=== PATIENT | female | born 1995 | race Caucasian/White ===

== ENCOUNTER 2019-01-26 12:33 | Emergency (ER) | payer MEDICAID, OTHER ==
--- NOTE | 2019-01-26 13:11 | EDM.PDOCBH ---
ED HPI GENERAL MEDICAL PROBLEM - General Chief Complaint: Behavioral/Psych Stated Complaint: FAINTED AT [employer] Time Seen by Provider: 01/26/19 13:07 Source of Information: Reports: Patient History Limitations: Reports: No Limitations - History of Present Illness INITIAL COMMENTS - FREE TEXT/NARRATIVE: 23-year-old female presents to the ED in a couple of her mother and sister. The details of what happened this morning are very unclear. She reports that she was out drinking yesterday but got home about 1700 hrs. and stays with her grandmother. Eat supper last night and she states she was not drunk by any means. She went to bed about 10:00. She get up for work this morning around 0730 hrs. ago already for work which was at 0900 hrs. When her mother was speaking with her this morning she was crying uncontrollably and the patient doesn't recollect this. Similarly at work she was crying when speaking to the luncheonette manager and apparently fainted in the workplace. 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 Therefore she was unlikely to been left alone. Been eating and drinking all that well for the last 2-3 days. She is under great deal of stress in college at this time. She states she thinks she's been sleeping adequately. No previous similar symptoms of happened like this in the past. Think that she got any other drugs in the alcohol she was drinking yesterday. She did have emesis once at work when her mother was there. She states was mostly clear water. She is usually very healthy young lady. She does not take any medications. Onset: Today Onset Date: 01/26/19 (Essentially suffered a breakdown in the workplace this morning. Questionable whether she fainted. She was crying uncontrollably. Both her grandmother and her mother attended her at work and brought her to the hospital.) Duration: Hour(s):, Other (Now feels better.) Location: Reports: Other (Denies any pain. Confused about the events of today.) Quality: Denies: Same as Previous Episode Severity: Moderate Improves with: Reports: Other (Seems to be back to normal at this time although she still quite anxious.) Context: Reports: Other. Denies: Activity, Exercise, Lifting, Sick Contact, Trauma Associated Symptoms: Reports: Confusion, Loss of Appetite, Malaise. Denies: Chest Pain (Remember going to work this morning who she was working with etc.), Cough, cough w sputum, Diaphoresis, Fever/Chills, Headaches, Nausea/Vomiting, Rash, Seizure, Shortness of Breath, Syncope Treatments LEGAL RECEPTIONIST: Reports: Other (see below) (None.) - Related Data Allergies Allergy/AdvReac Type Severity Reaction Status Date / Time No Known Allergies Allergy Verified 01/26/19 12:41 Home Meds: Home Meds . 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 Denies : Fever, Chills, Weight Loss HEENT: Reports: No Symptoms Respiratory: Reports: No Symptoms Cardiovascular: Reports: No Symptoms Endocrine: Reports: Fatigue GI/Abdominal: Reports: Nausea, Vomiting (Vomited once at work this morning clear emesis.) : Reports: No Symptoms Musculoskeletal: Reports: No Symptoms Skin: Reports: No Symptoms Neurological: Reports: Confusion, Dizziness Psychiatric: Reports: Agitation, Anxiety, Confusion (Confusion about what transpired this morning she can't remember.), Mood Lability, Other. Denies: Homicidal Ideation, Suicidal Ideation Hematologic/Lymphatic: Reports: No Symptoms Immunologic: Reports: No Symptoms ED EXAM, BEHAVIORAL HEALTH - Physical Exam Exam: See Below Exam Limited By: No Limitations General Appearance: Alert, WD/WN, Anxious, Moderate Distress, Other (Answers all questions to the best of ability but she is confused but the details what is happening to her this morning. I could not get any firm history that she may have suffered a seizure without anybody knowing this and becoming postictal.) Eye Exam: Bilateral Eye: Normal Inspection, PERRL Throat/Mouth: Normal Inspection, Normal Lips, Normal Oropharynx, Other Head: Atraumatic, Normocephalic (No evidence of dental or tongue injuries.) Neck: Normal Inspection, Supple, Non-Tender, Full Range of Motion. No: Lymphadenopathy (L), Lymphadenopathy (R) Respiratory/Chest: No Respiratory Distress, Lungs Clear, Normal Breath Sounds, No Accessory Muscle Use, Chest Non-Tender Cardiovascular: Normal Peripheral Pulses, Regular Rate, Rhythm, No Edema, No Gallop, No Murmur, No Rub GI/Abdominal: Normal Bowel Sounds, Soft, Non-Tender, No Organomegaly, No Abnormal Bruit, No Mass, Pelvis Stable, Other (No surgical scars.) Back Exam: Normal Inspection, Full Range of Motion, Paraspinal Tenderness. No: CVA Tenderness (L), CVA Tenderness (R) Extremities: Normal Inspection, Normal Range of Motion, Non-Tender, No Pedal Edema, Other Neurological: Alert (No tremor), CN II-XII Intact, Normal Cognition, Normal Reflexes, No Motor/Sensory Deficits, Oriented x 3. No: Normal Mood/Affect Psychiatric: Tearful, Other (Very anxious.). No: Suicidal Thoughts, Tangential Thoughts, Visual Hallucinations, Grandiose Thoughts, Paranoid Thoughts, Threatening Behavior Skin Exam: Warm, Dry, Cool (Cool and clammy and quite pallid on initial assessment.) COURSE, BEHAVIORAL HEALTH COMP - Course Vital Signs: Last Vital Signs Temp 35.8 C 01/26/19 12:40 Pulse 71 01/26/19 12:40 Resp 14 01/26/19 12:40 BP 125/80 01/26/19 12:40 Pulse Ox 100 01/26/19 12:40 Orthostatic Blood Pressure [ 110/82 Standing] Orthostatic Blood Pressure [ 115/82 Sitting] Orthostatic Blood Pressure [ 103/69 Supine] Orders, Labs, Meds: Active Orders 24 hr Category Date Time Status Orthostatic Vital Signs [RC] ASDIRECTED Care 01/26/19 13:07 Active COMPREHENSIVE METABOLIC PN,CMP [CHEM] Stat Lab 01/26/19 14:35 Ordered DRUG SCREEN, URINE [URCHEM] Stat Lab 01/26/19 13:57 Ordered URINALYSIS W/MICROSCOPIC [UA W/MICROSCOPIC] [URIN] Stat Lab 01/26/19 13:57 Ordered Dextrose 5%-Lactated Ringers 1,000 ml Med 01/26/19 13:15 Active IV ASDIRECTED Medication Orders Dextrose/Lactated Ringer's (Dextrose 5%-Lactated Ringers) 1,000 mls @ 999 mls/ hr IV ASDIRECTED MY Last Admin: 01/26/19 13:16 Dose: 999 mls/hr Laboratory Tests 01/26/19 01/26/19 01/26/19 Range/Units 12:40 12:40 12:40 WBC 8.04 (3.98-10.04) K/mm3 RBC 4.93 (3.98-5.22) M/mm3 Hgb 12.8 (11.2-15.7) gm/dl Hct 38.0 (34.1-44.9) % MCV 77.1 L (79.4-94.8) fl MCH 26.0 (25.6-32.2) pg MCHC 33.7 (32.2-35.5) g/dl RDW Std Deviation 44.0 (36.4-46.3) fL Plt Count 250 (182-369) K/mm3 MPV 12.0 (9.4-12.3) fl Neut % (Auto) 85.8 H (34.0-71.1) % Lymph % (Auto) 10.8 L (19.3-51.7) % [place] % (Auto) 2.9 L (4.7-12.5) % Eos % (Auto) 0.4 L (0.7-5.8) Baso % (Auto) 0.1 (0.1-1.2) % Neut # (Auto) 6.90 H (1.56-6.13) K/mm3 Lymph # (Auto) 0.87 L (1.18-3.74) K/mm3 [place] # (Auto) 0.23 L (0.24-0.36) K/mm3 Eos # (Auto) 0.03 L (0.04-0.36) K/mm3 Baso # (Auto) 0.01 (0.01-0.08) K/mm3 Manual Slide Review Abnormal smear Lactic Acid (0.4-2.0) mmol/L Magnesium 1.9 (1.8-2.4) mg/dl C-Reactive Protein < 0.2 (<1.0) mg/dL HCG, Qual Negative (NEGATIVE) Ethyl Alcohol 0.20 (0.00) gm% 01/26/19 Range/Units 13:29 WBC (3.98-10.04) K/mm3 RBC (3.98-5.22) M/mm3 Hgb (11.2-15.7) gm/dl Hct (34.1-44.9) % MCV (79.4-94.8) fl MCH (25.6-32.2) pg MCHC (32.2-35.5) g/dl RDW Std Deviation (36.4-46.3) fL Plt Count (182-369) K/mm3 MPV (9.4-12.3) fl Neut % (Auto) (34.0-71.1) % Lymph % (Auto) (19.3-51.7) % [place] % (Auto) (4.7-12.5) % Eos % (Auto) (0.7-5.8) Baso % (Auto) (0.1-1.2) % Neut # (Auto) (1.56-6.13) K/mm3 Lymph # (Auto) (1.18-3.74) K/mm3 [place] # (Auto) (0.24-0.36) K/mm3 Eos # (Auto) (0.04-0.36) K/mm3 Baso # (Auto) (0.01-0.08) K/mm3 Manual Slide Review Lactic Acid 2.4 H (0.4-2.0) mmol/L Magnesium (1.8-2.4) mg/dl C-Reactive Protein (<1.0) mg/dL HCG, Qual (NEGATIVE) Ethyl Alcohol (0.00) gm% Medications Generic Name Dose Route Start Last Admin Trade Name Freq PRN Reason Stop Dose Admin Dextrose/Lactated Ringer's 1,000 mls @ 999 mls/hr 01/26/19 13:15 01/26/19 13: 16 Dextrose 5%-Lactated Ringers IV 999 mls/hr ASDIRECTED MY Administration Discontinued Medications Generic Name Dose Route Start Last Admin Trade Name Freq PRN Reason Stop Dose Admin Lorazepam 0.5 mg 01/26/19 13:18 01/26/19 13:28 Ativan IVPUSH 01/26/19 13:19 0.5 mg ONETIME ONE Administration Ondansetron HCl 4 mg 01/26/19 13:17 01/26/19 13:26 Zofran IVPUSH 01/26/19 13:18 4 mg ONETIME ONE Administration Re-Assessment/Re-Exam: 23-year-old female attends the ED after her mother grandmother had to go pick her up 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 Additionally is exhibiting confusional episodes where she can't remember going to work this morning for what she did when she went to work. She apparently is under good deal of stress as of late trying to get through college. 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 She was drinking some alcohol yesterday afternoon but was home by 5:00 and did have supper last night. She states she's been sleeping fairly well the last 3-4 days not missing a lot of sleep. She appears to be very anxious about my exam. She did have vomiting of clear fluid but that her mother witnessed. She is tearful and as I said has some amnesia for the events of this morning. Neuro exam is normal. The rest of her examination is completely normal as well. Plan routine labs will be done. Orthostatic blood pressures to be done. IV will be D5 Ringer's lactate at open. She will receive Zofran 4 mg IV for further nausea relief and Ativan 0.5 mg IV for anxiety relief. I will see how things go and reexamine her later this there is a need for CT of the brain. Re-Assessment/Re-Exam Date: 01/26/19 (Hematology is back showing a normal white count at 8.04. Automated neutrophil count is 85.8. Hemoglobin is 12.8 hematocrit of 30. MCV slightly low at 77.1 suggesting some degree of iron deficiency. Platelet count 2 50,000. No band cells appreciated on the slide. Lactic acid is elevated at 2.4. Magnesium is 1.9. C-reactive protein is less than 0.2. BCG quantitative is negative. Blood alcohol is 0.20 g percent.) Re-Assessment/Re-Exam Time: 14:33 (Discussed the findings with the mother. Is obviously that Wendy has not been truthful with her and it's unclear how long she may been drinking alcohol for. She may be a closet alcoholic . She may have just been drinking sporadically due to the amount of stress she is under in the workplace and college. [facility] Departure - Departure Time of Disposition: 14:34 Disposition: Home, Self-Care 01 Condition: Fair Clinical Impression: Acute alcohol intoxication Qualifiers: Complication of substance-induced condition: uncomplicated Qualified Code(s): F10.920 - Alcohol use, unspecified with intoxication, uncomplicated - Discharge Information *PRESCRIPTION DRUG MONITORING PROGRAM REVIEWED*: Not Applicable *COPY OF PRESCRIPTION DRUG MONITORING REPORT IN PATIENT [place]: Not Applicable Instructions: Alcohol Use Disorder, Alcohol Intoxication, [id number] Referrals: PCP,None [Primary Care Provider] - Forms: ED Department Discharge, ED Return to Work/School Form Additional Instructions: Evaluation the emergency room today in regards to confusion and bizarre behavior with uncontrolled mood swings crying etc this occurred in the workplace this morning. Review report that you're drinking alcohol yesterday afternoon but were back and grandmother cells by 5 PM. Lab testing done today reveals mild dehydration and a current blood alcohol of 0.20 g percent which is 2-1/2 times the legal limit to operate a motor vehicle. He will not be sober enough to operate a motor vehicle for at least another 8 hours. He did receive IV fluids to rehydrate you well in the ED. He received medication for nausea. Suggest counseling services either a [facility]. Number is [phone] [facility] ([place], [place]) counseling services. Need to find out if she has a chronic alcohol use problem or is just using it short-term to cope with generalized anxiety disorder. Suggest follow-up with your primary care physician as well. At this time she needs sleep. May resume regular fluids and food when she awakens later this evening. - My Orders Last 24 Hours: My Active Orders 01/26/19 13:07 Orthostatic Vital Signs [RC] ASDIRECTED 01/26/19 13:15 Dextrose 5%-Lactated Ringers 1,000 ml IV ASDIRECTED 01/26/19 13:57 DRUG SCREEN, URINE [URCHEM] Stat URINALYSIS W/MICROSCOPIC [UA W/MICROSCOPIC] [URIN] Stat 01/26/19 14:35 COMPREHENSIVE METABOLIC PN,CMP [CHEM] Stat - Assessment/Plan Last 24 Hours: My Active Orders 01/26/19 13:07 Orthostatic Vital Signs [RC] ASDIRECTED 01/26/19 13:15 Dextrose 5%-Lactated Ringers 1,000 ml IV ASDIRECTED 01/26/19 13:57 DRUG SCREEN, URINE [URCHEM] Stat URINALYSIS W/MICROSCOPIC [UA W/MICROSCOPIC] [URIN] Stat 01/26/19 14:35 COMPREHENSIVE METABOLIC PN,CMP [CHEM] Stat
[2019-01-26] MEDS ORDERED: Dextrose 5%-Lactated Ringers 1,000 ML IV SCH (13:15)
[2019-01-26] MEDS ORDERED: Ondansetron 4 MG/2 ML SDV IVPUSH ONE (13:17)
[2019-01-26] MEDS ORDERED: LORazepam 2 MG/ML SDV IVPUSH ONE (13:18)
== END 2019-01-26 15:20 | disposition home or self-care (01) ==
LOC: JD.ED 12:33
DX: F10.920 Alcohol use, unspecified with intoxication, uncomplicated (principal); Y90.7 Blood alcohol level of 200-239 mg/100 ml
CPT/HCPCS: 36415; 80053; 80306; 80320; 81001; 83605; 83735; 84703; 85025; 86140; 96361; 96374; 96375; 99283; J2060; J2405; J7042; 99284; G0480